=== PATIENT | female | born 1970 | race American Indian/Alaskan Native ===

== ENCOUNTER 2018-10-01 18:27 | Emergency (ER) | payer MEDICAID ==
[2018-10-01 19:01] VITALS: TEMP 98.5; O2SAT 100; BMI 40.3
[2018-10-01] MEDS ORDERED: TDAP Vaccine 0.5 mL Syr IM ONE (20:05)
[2018-10-01 20:47] VITALS: BP 145/89; PULSE 85; RESP 18
--- NOTE | 2018-10-02 05:52 | ED PDOC ---
Arrival/HPI - General Chief Complaint: Finger,Hand,&Wrist Time Seen by Provider: 10/01/18 19:15 Historian: Patient - History of Present Illness Narrative History of Present Illness (Text): 48 y/o female presents to ED c/o right thumb pain x 1 month. Pt states she punctured her right thenar eminence with a pin from a clothing security tag and since that time has had intermittent pain to the thenar eminence and dorsal thumb. Unknown last tetanus. Denies fevers, chills, numbness, paresthesias, redness, drainage, or any other associated complaints. Past Medical History - Provider Review Nursing Documentation Reviewed: Yes - Infectious Disease Hx of Infectious Diseases: None - Psychiatric Hx Substance Use: No - Surgical History Hx Section: Yes (x 1) Family/Social History - Physician Review Nursing Documentation Reviewed: Yes Family/Social History: No Known Family HX Smoking Status: Light Smoker < 10 Cigarettes Daily Hx Alcohol Use: No Hx Substance Use: No Allergies/Home Meds Allergies/Adverse Reactions: Allergies No Known Allergies Allergy (Verified 10/01/18 19:01) Review of Systems - Physician Review All systems were reviewed & negative as marked: Yes - Review of Systems Constitutional: Normal. absent: Fevers Eyes: Normal. absent: Vision Changes ENT: Normal. absent: Sinus Congestion Respiratory: Normal. absent: SOB, Cough Cardiovascular: Normal. absent: Chest Pain, Syncope Gastrointestinal: Normal. absent: Abdominal Pain, Nausea, Vomiting Genitourinary Female: Normal Musculoskeletal: Arthralgias (right thumb) Skin: Normal. absent: Rash, Skin Lesions, Laceration, Cellulitis Neurological: Normal. absent: Headache, Dizziness Endocrine: Normal Hemo/Lymphatic: Normal Psychiatric: Normal Physical Exam Vital Signs Reviewed: Yes Vital Signs Temp Pulse Resp BP Pulse Ox 10/01/18 20:45 85 18 145/89 100 10/01/18 19:00 98.5 F 83 17 165/84 H 100 Temperature: Afebrile Blood Pressure: Hypertensive Pulse: Regular Respiratory Rate: Normal Appearance: Positive for: Well-Appearing, Non-Toxic, Comfortable Pain Distress: None Mental Status: Positive for: Alert and Oriented X 3 - Systems Exam Head: Present: Atraumatic, Normocephalic Pupils: Present: PERRL Extroacular Muscles: Present: EOMI Conjunctiva: Present: Normal Mouth: Present: Moist Mucous Membranes Neck: Present: Normal Range of Motion Respiratory/Chest: Present: Clear to Auscultation, Good Air Exchange. No: Respiratory Distress, Accessory Muscle Use Cardiovascular: Present: Regular Rate and Rhythm, Normal S1, S2, Peripheal Pulses Present. No: Murmurs Back: Present: Normal Inspection Upper Extremity: Present: Normal Inspection, Normal ROM, NORMAL PULSES, Tenderness (mild right thenar eminence), Neurovascularly Intact, Capillary Refill < 2s, Other (strength 5/5 bilaterally). No: Cyanosis, Edema, Swelling, Erythema, Deformity Lower Extremity: Present: Normal Inspection, Normal ROM, Neurovascularly Intact, Capillary Refill < 2 s. No: Edema Neurological: Present: GCS=15, CN II-XII Intact, Speech Normal, Motor Func Grossly Intact, Normal Sensory Function, Gait Normal Skin: Present: Warm, Dry, Normal Color. No: Rashes Psychiatric: Present: Alert, Oriented x 3, Normal Insight, Normal Concentration, Normal Affect, Normal Mood Medical Decision Making ED Course and Treatment: Initial Plan: * Right hand XR * Ibuprofen * TDaP * Thumb Spica Brace XR read as negative for any acute fracture, dislocation, or FB. Patient placed in thumb spica brace and advised to followup with hand specialist. Plan of care discussed with patient, and strict instructions given regarding prescriptions, importance of follow up, and signs to return to Emergency Department, to include worsening pain, numbness, paresthesias, weakness, or any other new/worsening symptoms. Patient verbalizes understanding of discussion. Patient A&Ox3, ambulating with steady gait, stable for discharge home. - RAD Interpretation Radiology Orders: 10/01/18 19:12 HAND RIGHT THUMB [RAD] Stat - Medication Orders Current Medication Orders: Discontinued Medications Ibuprofen (Motrin Tab) 600 mg PO STAT STA Stop: 10/01/18 19:15 Last Admin: 10/01/18 19:26 Dose: 600 mg MAR Pain/Vitals Document 10/01/18 19:26 AD (Rec: 10/01/18 19:27 AD [facility] [id number] Presence of Pain Presence of Pain No Pain Scale Used Protocol: PSCALES Pain Scale Used Numeric Location Intensity 5 Scale Used Numeric Tetanus/Reduced Diphtheria/Acell Pertussis (Boostrix Vaccine Inj) 0.5 ml IM .ONCE ONE Stop: 10/01/18 20:06 Last Admin: 10/01/18 20:27 Dose: 0.5 ml Immunization Registry Document 10/01/18 20:27 AD (Rec: 10/01/18 20:27 AD [facility] [id number]) [facility] [place] provided 10/01/18 Disposition/Present on Arrival - Present on Arrival Any Indicators Present on Arrival: No History of DVT/PE: No History of Uncontrolled Diabetes: No Urinary Catheter: No History of Decub. Ulcer: No History Surgical Site Infection Following: None - Disposition Have Diagnosis and Disposition been Completed?: Yes Diagnosis: Thumb pain Disposition: HOME/ ROUTINE Disposition Time: 20:35 Patient Plan: Discharge Condition: STABLE Discharge Instructions (ExitCare): Muscle and Bone Pain (DC) Additional Instructions: Naproxen daily as needed for pain Wear hand brace Followup with hand doctor within 2 days Followup with primary doctor within 2 days Return to ER for new/worsening pain Prescriptions: Naproxen [Naprosyn] 500 mg PO DAILY PRN #14 tablet PRN Reason: Pain, Moderate (4-7) Referrals: Bia Lu MD [Staff Provider] - Follow up with primary Forms: [employer] (Kinyarwanda), WORK NOTE
--- NOTE | 2018-10-02 08:22 | RAD ---
PROCEDURE: Right Hand Radiographs. HISTORY: right thumb pain COMPARISON: None. FINDINGS: BONES: Normal. No fracture. JOINTS: Normal. No osteoarthritic changes. SOFT TISSUES: Normal. OTHER FINDINGS: None. IMPRESSION: Normal right hand radiographs.
== END 2018-10-01 20:45 | disposition home or self-care (01) ==
LOC: ED 18:27 → MERGE 18:27 → ED 20:45
DX: M79.644 Pain in right finger(s) (principal); Z23 Encounter for immunization